=== PATIENT | male | born 1960 | race Caucasian/White ===

== ENCOUNTER 2016-10-27 11:33 | Inpatient (IN) | payer BC ==
[~2016-10-27] VITALS: Ht 170.2 cm; Wt 97.5 kg
--- NOTE | ~2016-10-27 | HC ---
[facility] [place] [address] CONSULTATION Name: [facility] Room #: 546-P ADM IN M.R.#: [id number] Admission: 10/27/16 Attend Phys: Reji Smyth MD Discharge: Date of : 62 Report #: [id number] THIS REPORT FOR: //name// CC: Reji Smyth REASON FOR CONSULTATION: Chest pain. IMPRESSION: 1. Chest pain, this continuity involving the cartilage associated to right 9th rib with possible hematoma. 2. Exacerbation of chronic obstructive pulmonary disease. 3. Hypertension. 4. Chronic back pain. 5. Eosinophilia. PLAN: Agree with current therapy. He has had a sleep study as outpatient. We will try to obtain this, may need further cardiothoracic evaluation should pain now resolve, or may ask anesthesia for assistance with the block. HISTORY OF PRESENT ILLNESS: A 56-year-old who has had cough, shortness of breath, and developed acute right anterior chest pain along the ribs, went to the Emergency Room yesterday and today saw his physician who brought him in and found the abnormality. The pain is worsening his ability to breathe, and this needs to be controlled. MEDICATIONS: Include hydrocodone, DuoNeb, Cozaar, Zoloft, Advair, and Combivent. PAST SURGICAL HISTORY: Skin cancer and orthopedic. FAMILY HISTORY: Noncontributory. SOCIAL HISTORY: Positive tobacco quit 2004, works at [employer] plant, occasional ETOH. ALLERGIES: No known. REVIEW OF SYSTEMS: COPD, hypertension, anxiety, depression, chronic low back pain, and history of pneumothorax . He denies headache, nausea, vomiting, hemoptysis, or hematemesis. PHYSICAL EXAMINATION: VITAL SIGNS: Temperature 36.6, pulse 58, respirations 18, BP 100/58, pulse ox 90. eyes neg icterus heart reg lungs wheeze [facility] [address] [place] [address] CONSULTATION Name: [facility] [place] Room #: 546-P ADM IN M.R.#: [id number] Admission: 10/27/16 Attend Phys: Reji Smyth MD Discharge: Date of : 62 Report #: [id number] abd bs present soft ext no edema LABORATORY DATA: CT reviewed. White count 8.7, hemoglobin 14.1, platelets 200. Eosinophils 14.3. BUN 18, creatinine 11. Eosinophils 14 yesterday. <ELECTRONICALLY SIGNED> By: Chavez Newby MD 10/28/16 0948 [id number] Chavez Newby MD /nt
--- NOTE | ~2016-10-27 | H ---
[facility] [place] [address] HISTORY AND PHYSICAL Name: [facility] [place] Room #: 546-P ADM IN M.R.#: [id number] Admission: 10/27/16 Attend Phys: Reji Smyth MD Discharge: Date of : 62 Report #: [id number] THIS REPORT FOR: //name// CC: Reji Smyth DATE OF SERVICE: 10/27/2016 CHIEF COMPLAINT: Right chest wall pain. HISTORY OF PRESENT ILLNESS: The patient is a 56-year-old gentleman with a history of COPD who was admitted from the office today with right chest wall pain. He awoke yesterday morning with a coughing spasm and developed sharp sudden pain in the right side. The area was located in sort of underneath the lower right rib cage. It was worse with a deep breath or coughing or twisting. He was seen in the Emergency Room and discharged home. I saw him in the office today and he says his pain is intensified and he is unable to take a deep breath. He is starting to have congestion with wheezing and more shortness of breath. PAST MEDICAL HISTORY: COPD, hypertension, anxiety, depression, chronic low back pain. He reports having a pneumothorax in the past. PAST SURGICAL HISTORY: He has had some orthopedic and skin cancer issues. FAMILY HISTORY: Noncontributory. SOCIAL HISTORY: Occasion alcohol use. He does smoke daily. He works at an [employer] plant. ALLERGIES: None. MEDICATIONS: Hydrocodone 10 mg q.i.d., DuoNeb, Cozaar 50 mg, Zoloft 100 mg, Combivent inhaler, Advair 500 mcg b.i.d. REVIEW OF SYSTEMS: He denies headache, chest pain, abdominal pain, nausea, vomiting, diarrhea, constipation, dysuria, syncope. PHYSICAL EXAMINATION: VITAL SIGNS: Per the nursing note. GENERAL: He is awake and alert, in no distress. HEAD AND NECK: Unremarkable. LUNGS: He has expiratory wheezing but equal breath sounds bilaterally. HEART: Regular rate and rhythm. CHEST: He has palpable tenderness in the right lower ribs. ABDOMEN: Soft, normoactive bowel sounds. No rebound or guarding. EXTREMITIES: No cyanosis, clubbing or edema. [facility] [address] [place] [address] HISTORY AND PHYSICAL Name: [facility] [place] Room #: 546-P ADM IN M.R.#: [id number] Admission: 10/27/16 Attend Phys: Reji Smyth MD Discharge: Date of : 62 Report #: [id number] NEUROLOGIC: Intact. ASSESSMENT: 1. Acute exacerbation of chronic obstructive pulmonary disease. 2. Right chest wall pain, rule out rib fracture or muscle wall tear or separation. 3. Hypertension. 4. Chronic low back pain. PLAN: He will be admitted as he has failed outpatient treatment, no improvement since ER visit yesterday. COPD treatment has been ordered along with plans for a CT of the chest. I have asked Dr. Newby to see him as well. <ELECTRONICALLY SIGNED> By: Reji Smyth MD 10/28/16 1025 1322 1346 Reji Smyth MD /nt
--- NOTE | ~2016-10-27 | D ---
[facility] [place] [address] DISCHARGE SUMMARY Name: [facility] Room #: 546-P DIS IN M.R.#: [id number] Admission: 10/27/16 Attend Phys: Reji Smyth MD Discharge: 10/28/16 Date of : 62 Report #: [id number] THIS REPORT FOR: //name// CC: Reji Smyth DATE OF SERVICE: 10/28/2016 FINAL DIAGNOSES: 1. Acute exacerbation of chronic obstructive pulmonary disease. 2. Separation of right 9th rib. HOSPITAL COURSE: The patient was admitted with chest pain. CT revealed separation of the 9th rib cartilage and hematoma. This was felt to be the source of his pain related to coughing. He was treated for COPD exacerbation with steroids, antibiotics and , nebulized treatments. Dr. Newby saw him in consultation. The following day, he was improved with less pain and less coughing. His lungs were clear, without wheezing and other vitals were stable. DISPOSITION: He will be discharged to home with diet and activity as tolerated, resume all home medications. He is to remain off work until followup next week with me and then follow up with Dr. Newby in 3 weeks. He will be on a prednisone taper over 2 weeks, doxycycline b.i.d. for a week and Robitussin with codeine as needed for cough suppression. <ELECTRONICALLY SIGNED> By: Reji Smyth MD 10/28/16 1558 1124 1240 Reji Smyth MD /enoch
[~2016-10-27 11:33] MED LIST: ADVAIR 500-501 EACH INH; CELEBREX 200 M200 M1 PO; COMBIVENT INH; COZAAR 50 MG TA50 M2 PO; DUONEB 2.5-0.5 M3 ML INH; NORCO 10-325 T1 EACH PO; NORCO 5-325 TA1 EACH PO; OXYCODONE PO; SEREVENT DISKU50 MCG IH; XANAX 0.5 MG0.5 MG PO; Xanax PO; ZOLOFT50 MG PO
[2016-10-27 14:03] LABS: CALCIUM 8.9 mg/dL (8.5-10.1); CREATININE 1.1 mg/dL (0.7-1.3); POTASSIUM 4.6 mmol/L (3.5-5.1)
[2016-10-27 14:20] LABS: ABSOLUTE NEUTROPHILS 4.6 thou/uL (1.4-8.2); BASOPHILS 0.7 % (0.0-2.0); EOSINOPHILS 14.3 % (0.0-3.0); HEMATOCRIT 41.4 % (42.0-52.0); HEMOGLOBIN 14.1 gm/dL (14.0-18.0); LYMPHOCYTES 23.1 % (24.0-44.0); MCH 28.7 pg (26.0-34.0); MCV 84.6 fL (80.0-100.0); MONOCYTES 8.3 % (1.0-8.0); PLATELET COUNT 200 thou/uL (150-400); POLYS 53.6 % (36.0-66.0); RBC 4.89 mil/uL (4.50-6.00); RDW 14.4 % (10.5-14.5); WBC 8.7 thou/uL (4.0-11.0)
[2016-10-27 14:34] LABS: MANUAL DIFF NO
[2016-10-27] MEDS ORDERED: LISINOPRIL20 MG PO (15:26)
[2016-10-27 16:31] VITALS: BP 100/58
[2016-10-27 20:00] VITALS: BP 111/59
[2016-10-27 23:40] VITALS: BP 109/93
[2016-10-28 04:00] VITALS: BP 118/69
[2016-10-28 08:42] LABS: HEMATOCRIT 42.8 % (42.0-52.0); HEMOGLOBIN 14.3 gm/dL (14.0-18.0); MCH 28.2 pg (26.0-34.0); MCHC 33.4 g/dL (28.0-37.0); MCV 84.4 fL (80.0-100.0); PLATELET COUNT 221 thou/uL (150-400); RBC 5.06 mil/uL (4.50-6.00); RDW 13.9 % (10.5-14.5); WBC 17.1 thou/uL (4.0-11.0)
[2016-10-28 08:45] VITALS: BP 128/78
[2016-10-28 08:45] LABS: MANUAL DIFF YES
[2016-10-28 09:15] LABS: ABSOLUTE NEUTROPHILS 15.2 thou/uL (1.4-8.2); ANISOCYTOSIS SLIGHT; TOTAL CELL COUNT 100
[2016-10-28] MEDS ORDERED: CLARITIN10 M2 PO (10:18)
[2016-10-28] MEDS ORDERED: DOXYCYCLINE 10100 MG PO (10:19)
[2016-10-28] MEDS ORDERED: PREDNISONE 10 M10 MG PO (10:20)
[2016-10-28] MEDS ORDERED: CHERATUSSIN AC118 ML PO (10:21)
[2016-10-28 10:29] VITALS: BP 128/78
[2016-10-28 11:01] VITALS: BP 128/78
== END 2016-10-28 11:02 | disposition home or self-care (01) | DRG 192 ==
LOC: 5S 11:33
PROVIDERS: Internal Medicine Geriatric Medicine; Internal Medicine Pulmonary Disease
DX: J44.1 Chronic obstructive pulmonary disease with (acute) exacerbation (principal); S23.29XA Dislocation of other parts of thorax, initial encounter; I10 Essential (primary) hypertension; G89.29 Other chronic pain; M54.5 Low back pain; D72.1 Eosinophilia; F41.9 Anxiety disorder, unspecified; F32.9 Major depressive disorder, single episode, unspecified; F17.210 Nicotine dependence, cigarettes, uncomplicated; X58.XXXA Exposure to other specified factors, initial encounter; Z91.048 Other nonmedicinal substance allergy status; Z79.899 Other long term (current) drug therapy; Z85.828 Personal history of other malignant neoplasm of skin; Y93.89 Activity, other specified; Y92.89 Other specified places as the place of occurrence of the external cause; Y99.8 Other external cause status
CPT/HCPCS: 10785

== ENCOUNTER → 2016-11-16 | Outpatient (CLI) | payer BC ==
[~2016-11-16] MED LIST changes: +CHERATUSSIN AC118 ML PO; +CLARITIN10 M2 PO; +DOXYCYCLINE 10100 MG PO; +LISINOPRIL20 MG PO; +PREDNISONE 10 M10 MG PO
== END ==
LOC: CAT 02:07
DX: S23.29XD Dislocation of other parts of thorax, subsequent encounter (principal); M25.78 Osteophyte, vertebrae; X58.XXXD Exposure to other specified factors, subsequent encounter

== ENCOUNTER → 2016-11-29 | Outpatient (CLI) | payer BC | LOC: RAD 13:30 | DX: R07.9 Chest pain, unspecified (principal); S23 Dislocation and sprain of joints and ligaments of thorax ==

== ENCOUNTER → 2016-12-31 | Outpatient (CLI) | payer BC ==
[~2016-12-31] VITALS: Ht 170.2 cm; Wt 99.3 kg
[~2016-12-31] MED LIST changes: +SERTRALINE HCL50 MG PO
--- NOTE | ~2016-12-31 | HPC ---
[facility] [place] [address] PAIN MANAGEMENT CONSULTATION Name: [facility] Room #: REG CL Elinor.#: [id number] Admission: 12/31/16 Attend Phys: Toya Ibarra MD Discharge: Date of : 62 Report #: [id number] THIS REPORT FOR: //name// CC: Reji Drew MD DATE OF SERVICE: 12/31/2016 FOLLOWUP COMPLAINT: Low back pain that radiates down into the right leg and mid thigh. This has been problematic since December 17. He feels that he would like to undergo an epidural steroid injection. He rates his pain as a 6 today. On average, it has been a 9-10. Pain is worse when he is standing too long or when he engages in activities of daily living. PHYSICAL EXAMINATION: Blood pressure 110/65, pulse 70, respiratory rate 16, room air saturation 96%, height 5 feet 7 inches, weight 99 kg, BMI 34.3. The patient has pain and discomfort in the lower portion of his back with radiating down into the right leg to the mid thigh with numbness and weakness. IMPRESSION: Chronic low back pain with exacerbation of discomfort. RECOMMENDATIONS: We discussed the treatment option with the patient. Risks and benefits of an epidural steroid injection were explained but not limited to infection, increased muscle soreness, bleeding, headache, muscle or nerve damage. The patient elects to proceed. PROCEDURE NOTE: The patient was placed in the prone position. Fluoroscopy was used to identify the L5-S1 area. This area had been sterilely prepped with Betadine and infiltrated with 0.25% bupivacaine. Total of 80 mg Depo-Medrol, 40 mg triamcinolone and 2 mL of 0.25% bupivacaine was injected. The patient tolerated the procedure well. There were no complications. His pain decreased from a 6 to 1 at the time of discharge. He will follow up in the future as needed. Total of 11 seconds fluoroscopy time was used. We would like to thank you for letting us participate in his care. We hope he continues to improve. By: [id number] Toya Ibarra MD /enoch
[2016-12-31 12:12] VITALS: BP 110/65
== END | disposition home or self-care (01) ==
LOC: PAIN 09:03
DX: M54.16 Radiculopathy, lumbar region (principal)

== ENCOUNTER → 2017-01-03 | Outpatient (CLI) | payer BC | LOC: RAD 11:48 | DX: R07.81 Pleurodynia (principal); R05 Cough; S23 Dislocation and sprain of joints and ligaments of thorax ==

== ENCOUNTER 2018-07-29 18:15 | Emergency (ER) | payer BC ==
[~2018-07-29] VITALS: Ht 170.2 cm; Wt 93.0 kg
[2018-07-29] MEDS ORDERED: NORFLEX100 MG PO (20:26)
[2018-07-29] MEDS ORDERED: PREDNISONE 10 M10 MG PO (20:26)
[2018-07-29] MEDS ORDERED: PERCOCET PO (20:32)
[2018-07-29 20:51] VITALS: BP 104/62
== END 2018-07-29 20:54 | disposition home or self-care (01) ==
LOC: ER 18:15
DX: M54.6 Pain in thoracic spine (principal); Z87.891 Personal history of nicotine dependence; Z88.8 Allergy status to other drugs, medicaments and biological substances; Z85.828 Personal history of other malignant neoplasm of skin

== ENCOUNTER 2018-11-04 09:26 | Emergency (ER) | payer BC ==
[~2018-11-04] VITALS: Ht 170.2 cm; Wt 93.0 kg
[~2018-11-04 09:26] MED LIST changes: +NORFLEX100 MG PO; +PERCOCET PO
[2018-11-04 09:39] LABS: URINE BILIRUBIN NEGATIVE (Negative); URINE BLOOD 1+ (Negative); URINE CLARITY CLEAR; URINE COLOR YELLOW; URINE GLUCOSE-RANDOM* NEGATIVE (Negative); URINE KETONES NEGATIVE (Negative); URINE LEUKOCYTES-REFLEX 1+ (Negative); URINE NITRITE-REFLEX NEGATIVE (Negative); URINE PROTEIN (DIPSTICK) NEGATIVE (Negative); URINE UROBILINOGEN 0.2 E.U./dl (0.2-1.0)
[2018-11-04 09:47] LABS: ABSOLUTE NEUTROPHILS 9.3 thou/uL (1.4-8.2); BASOPHILS 0.9 % (0.0-2.0); EOSINOPHILS 1.9 % (0.0-3.0); HEMOGLOBIN 14.4 gm/dL (14.0-18.0); LYMPHOCYTES 18.9 % (24.0-44.0); MCHC 33.5 g/dL (28.0-37.0); MCV 86.5 fL (80.0-100.0); MONOCYTES 8.2 % (1.0-8.0); PLATELET COUNT 211 thou/uL (150-400); POLYS 70.1 % (36.0-66.0); RBC 4.97 mil/uL (4.50-6.00); RDW 14.7 % (10.5-14.5); WBC 13.2 thou/uL (4.0-11.0)
[2018-11-04 09:51] LABS: SQUAMOUS None Seen /LPF (0-3)
[2018-11-04 09:52] LABS: BACTERIA-REFLEX 1-9 Few /HPF (None Seen); CASTS None Seen /LPF (None Seen); CRYSTALS None Seen /LPF (None Seen); URINE RBC 3-10 Few /HPF (0-2); URINE WBC-REFLEX 0-5 Rare /HPF (0-5)
[2018-11-04 09:57] LABS: CALCIUM 9.5 mg/dL (8.5-10.1); CREATININE 1.4 mg/dL (0.7-1.3); POTASSIUM 4.4 mmol/L (3.5-5.1)
[2018-11-04 10:16] LABS: ALBUMIN 3.7 g/dL (3.4-5.0); DIRECT BILIRUBIN < 0.1 mg/dL (<0.1-0.3); LIPASE 286 U/L (73-393); SGOT 16 U/L (15-37); SGPT 24 U/L (30-65); TOTAL BILIRUBIN 0.4 mg/dL (<0.1-1.0); TOTAL PROTEIN 7.1 g/dL (6.4-8.2)
[2018-11-04 13:02] VITALS: BP 110/62
== END 2018-11-04 13:00 | disposition short-term general hospital (02) ==
LOC: ER 09:26
PROVIDERS: Student in an Organized Health Care Education/Training Program
DX: N13.6 Pyonephrosis (principal); N39.0 Urinary tract infection, site not specified; R11.2 Nausea with vomiting, unspecified; Z87.891 Personal history of nicotine dependence; Z85.828 Personal history of other malignant neoplasm of skin

== ENCOUNTER 2021-03-15 12:33 | Emergency (ER) | payer BC ==
[~2021-03-15] VITALS: Ht 170.2 cm; Wt 90.7 kg
[2021-03-15] MEDS ORDERED: FINASTERIDE5 MG PO (12:44)
[2021-03-15] MEDS ORDERED: TAMSULOSIN HCL0.4 MG PO (12:44)
[2021-03-15] MEDS ORDERED: AUGMENTIN 875-1 EACH PO (14:46)
[2021-03-15 15:34] VITALS: BP 132/87
== END 2021-03-15 15:34 | disposition home or self-care (01) ==
LOC: ER 12:33
DX: S61.411A Laceration without foreign body of right hand, initial encounter (principal); F17.210 Nicotine dependence, cigarettes, uncomplicated; J44.9 Chronic obstructive pulmonary disease, unspecified; W54.0XXA Bitten by dog, initial encounter; Y93.89 Activity, other specified; Y92.89 Other specified places as the place of occurrence of the external cause; Y99.8 Other external cause status